=== PATIENT | male | born 1980 | race Caucasian/White ===

== ENCOUNTER → 2020-07-26 | Outpatient (CLI) | payer BC ==
[2020-07-26 15:25] LABS: Albumin 4.6 g/dL (3.80-4.90)
[2020-07-26 15:34] LABS: Estradiol 35.7 pg/mL; Prolactin 10.9 ng/mL (2.1-17.7)
[2020-07-26 15:36] LABS: Follicle Stimulating Hormone 7.4 mIU/mL
== END | disposition home or self-care (01) ==
LOC: LABWHC1 08:23
PROVIDERS: ATTEND Urology
DX: E29.1 Testicular hypofunction (principal)
CPT/HCPCS: 36415; 82040; 82670; 82947; 83001; 83002; 84146; 84270; 84403; 84436; 84443; 84479